=== PATIENT | female | born 1995 | race Caucasian/White ===

== ENCOUNTER 2020-08-02 17:51 | Inpatient (IN) | payer OTHER ==
[2020-08-02] MEDS ORDERED: ACETAMINOPHEN 1000 MG/100 ML VIAL (NON FORMULARY) IVPB ONE (18:14)
[2020-08-02] MEDS ORDERED: SODIUM CHLORIDE 1,000 ML IV STA (18:14)
[2020-08-02] MEDS ORDERED: ONDANSETRON 4 MG/2 ML VIAL IVPUSH ONE (18:15)
[2020-08-02] MEDS ORDERED: morphine CARPU-JECT 2 MG/1 ML DISP.SYRIN IVPUSH ONE (18:21)
[2020-08-02] MEDS ORDERED: MORPHINE SULFATE 2 MG/ML VIAL ONE (18:30)
[2020-08-02] MEDS ORDERED: ACETAMINOPHEN INJECTION 100 ML IVPB ONE (18:30)
[2020-08-02] MEDS ORDERED: ONDANSETRON 4 MG/2 ML VIAL ONE (18:30)
[2020-08-02] MEDS ORDERED: PIPERACILLIN/TAZOB 4.5 GM 4.5 GM/100 ML BAG IVPB ONE (18:31)
[2020-08-02 18:50] LABS: BASO % 0.2 % (0-2.0); EOS % 0.1 % (0-4.5); HEMATOCRIT 37.6 % (32.4-45.2); HEMOGLOBIN 12.7 GM/dL (10.7-15.3); LYMPH % 21.5 % (8-40); MCH 30.9 pg (25.7-33.7); MCHC 33.9 g/dl (32.0-36.0); MEAN CELL VOLUME 91.1 fl (80-96); MEAN PLT VOLUME 8.6 fl (7.5-11.1); MONO % 5.2 % (3.8-10.2); PLATELET COUNT 169 K/MM3 (134-434); RBC 4.13 M/mm3 (3.60-5.2); RDW 15.7 % (11.6-15.6); WHITE BLOOD COUNT 6.5 K/mm3 (4.0-10.0)
[2020-08-02] MEDS ORDERED: PIPERACILLIN/TAZOB 4.5 GM 4.5 GM in DEXTROSE 5%-WATER 100 ML IVPB ONE (18:50)
[2020-08-02 19:10] LABS: CHLORIDE 102 mmol/L (98-107); POTASSIUM 3.5 mmol/L (3.5-5.1); SODIUM 137 mmol/L (136-145)
[2020-08-02 19:13] LABS: ANION GAP 7 MMOL/L (8-16); BLOOD UREA NITROGEN 9.5 mg/dL (7-18); CALCIUM 8.1 mg/dL (8.5-10.1); CO2 28 mmol/L (21-32); GLUCOSE,RANDOM 88 mg/dL (74-106); LIPASE 172 U/L (73-393)
[2020-08-02 19:16] LABS: CREATININE 1.1 mg/dL (0.55-1.3); SGOT/AST 38 U/L (15-37); SGPT/ALT 38 U/L (13-61)
[2020-08-02 19:18] LABS: BILIRUBIN,TOTAL 0.5 mg/dL (0.2-1); TOT PROT 7.3 g/dl (6.4-8.2)
[2020-08-02 19:19] LABS: ALK PHOS 84 U/L (45-117)
[2020-08-03] MEDS ORDERED: BUPIVACAINE HCL 100 ML ONE (01:51)
[2020-08-03] MEDS ORDERED: ONDANSETRON 4 MG/2 ML VIAL IVPUSH PRN ×2 (02:08→04:53)
[2020-08-03] MEDS ORDERED: ROCURONIUM BROMIDE 50 MG/5 ML SYRINGE ONE (02:13)
[2020-08-03] MEDS ORDERED: PROPOFOL 20 ML ONE (02:13)
[2020-08-03] MEDS ORDERED: fentaNYL CITRATE 250 MCG/5 ML VIAL ONE (02:13)
[2020-08-03] MEDS ORDERED: LACTATED RINGERS SOLUTION 1,000 ML IV SCH ×2 (02:15→04:53)
[2020-08-03] MEDS ORDERED: SUCCINYLCHOLINE CHLORIDE 200 MG/10 ML SYRINGE ONE (02:18)
[2020-08-03] MEDS ORDERED: SEVOFLURANE 250 ML BTL ONE (02:21)
[2020-08-03] MEDS ORDERED: ERTAPENEM SODIUM 1 GM VIAL IVPB ONE (03:00)
[2020-08-03] MEDS ORDERED: ERTAPENEM SODIUM 1 GM VIAL ONE (03:06)
[2020-08-03] MEDS ORDERED: DEXAMETHASONE SOD PHOSPHATE 4 MG/1 ML VIAL ONE (03:10)
[2020-08-03] MEDS ORDERED: BUPIVACAINE HCL/PF 0.5% (5MG/ML) 10 ML VIAL IJ ONE (03:15)
[2020-08-03] MEDS ORDERED: NEOSTIGMINE METHYLSULFATE 0.5 MG/ML - 10 ML MDV ONE (04:07)
[2020-08-03] MEDS ORDERED: GLYCOPYRROLATE 0.2 MG/1 ML VIAL ONE (04:07)
[2020-08-03] MEDS ORDERED: KETOROLAC TROMETHAMINE 30 MG/1 ML VIAL ONE (04:08)
[2020-08-03] MEDS ORDERED: oxyCODONE HCL 5 MG TABLET PO PRN (04:44)
[2020-08-03] MEDS ORDERED: DOCUSATE SODIUM 100 MG CAPSULE (FP) PO PRN (04:47)
[2020-08-03 06:50] VITALS: BMI 35.7
[2020-08-03] MEDS ORDERED: PIPERACILLIN/TAZOB 3.375 GM 3.375 GM in DEXTROSE 5%-WATER - 50 ML IVPB SCH ×2 (10:00→10:45)
[2020-08-03] MEDS ORDERED: DEXTROSE 5%-WATER - 50 ML IVPB ONE ×2 (10:26→17:29)
[2020-08-03] MEDS ORDERED: PIPERACILLIN/TAZOBACTAM 3.375 GM VIAL IVPB ONE ×2 (10:26→17:29)
[2020-08-03] MEDS: DEXTROSE 5%-0.45% SALINE 1,000 ML IV SCH ×2 (10:34→21:59)
[2020-08-03 11:13] LABS: BASO % 0.1 % (0-2.0); HEMATOCRIT 35.9 % (32.4-45.2); HEMOGLOBIN 11.9 GM/dL (10.7-15.3); LYMPH % 10.7 % (8-40); MCH 30.6 pg (25.7-33.7); MCHC 33.1 g/dl (32.0-36.0); MEAN CELL VOLUME 92.5 fl (80-96); MEAN PLT VOLUME 8.4 fl (7.5-11.1); MONO % 3.5 % (3.8-10.2); NEUT % 85.7 % (42.8-82.8); PLATELET COUNT 147 K/MM3 (134-434); RBC 3.87 M/mm3 (3.60-5.2); RDW 15.6 % (11.6-15.6); WHITE BLOOD COUNT 6.8 K/mm3 (4.0-10.0)
[2020-08-03 11:36] LABS: POTASSIUM 3.3 mmol/L (3.5-5.1)
[2020-08-03 11:39] LABS: BLOOD UREA NITROGEN 8.3 mg/dL (7-18)
[2020-08-03 11:42] LABS: CREATININE 1.2 mg/dL (0.55-1.3)
[2020-08-03] MEDS ORDERED: PIPERACILLIN/TAZOB 3.375 GM 3.375 GM in DEXTROSE 5%-WATER - 50 ML IVPB ONE (12:00)
[2020-08-03] MEDS: PIPERACILLIN/TAZOB 3.375 GM 3.375 GM in DEXTROSE 5%-WATER - 50 ML IVPB SCH (17:36)
[2020-08-04] MEDS ORDERED: DEXTROSE 5%-WATER - 50 ML IVPB ONE ×2 (00:39→10:52)
[2020-08-04] MEDS ORDERED: PIPERACILLIN/TAZOBACTAM 3.375 GM VIAL IVPB ONE ×2 (00:39→10:52)
[2020-08-04] MEDS: HEPARIN NA (PORCINE) 5,000 UNITS/ML 1ML VIAL SQ SCH ×2 (00:52→11:17)
[2020-08-04] MEDS: PIPERACILLIN/TAZOB 3.375 GM 3.375 GM in DEXTROSE 5%-WATER - 50 ML IVPB SCH ×2 (01:08→11:16)
[2020-08-04 08:42] LABS: BASO % 0.3 % (0-2.0); EOS % 0.2 % (0-4.5); HEMATOCRIT 31.6 % (32.4-45.2); HEMOGLOBIN 10.7 GM/dL (10.7-15.3); LYMPH % 28.1 % (8-40); MCHC 33.8 g/dl (32.0-36.0); MEAN CELL VOLUME 91.7 fl (80-96); MEAN PLT VOLUME 8.2 fl (7.5-11.1); MONO % 5.3 % (3.8-10.2); NEUT % 66.1 % (42.8-82.8); PLATELET COUNT 144 K/MM3 (134-434); RBC 3.45 M/mm3 (3.60-5.2); RDW 15.3 % (11.6-15.6); WHITE BLOOD COUNT 4.4 K/mm3 (4.0-10.0)
[2020-08-04 08:56] LABS: POTASSIUM 3.2 mmol/L (3.5-5.1)
[2020-08-04 09:01] LABS: BLOOD UREA NITROGEN 7.8 mg/dL (7-18); CALCIUM 7.7 mg/dL (8.5-10.1)
[2020-08-04 09:04] LABS: CREATININE 0.9 mg/dL (0.55-1.3)
[2020-08-04 09:06] LABS: BILIRUBIN,TOTAL 0.9 mg/dL (0.2-1); TOT PROT 5.9 g/dl (6.4-8.2)
[2020-08-04 15:40] VITALS: BP 132/76; PULSE 84; TEMP 99.1
== END 2020-08-04 18:54 | disposition home or self-care (01) | DRG 225 ==
LOC: JER 17:51 → JERBED 23:57 → J8W 08-03 05:57
PROVIDERS: ADMIT Internal Medicine; ATTEND Internal Medicine
PROC: 0DTJ4ZZ Resection of Appendix, Percutaneous Endoscopic Approach (ICD-10-PCS; principal; 2020-08-03 01:30)
DX: K35.31 Acute appendicitis with localized peritonitis and gangrene, without perforation (principal)
CPT/HCPCS: 36415; 74177-TC; 80048; 80053; 82550; 82553; 83605; 83690; 84484; 84703; 85025; 87040; 88307-TC; 88341-TC; 93005; 93010; 94760; 99285-25; C9803; J0131; J1644; Q9967; U0003